=== PATIENT | female | born 1960 | race Caucasian/White ===

== ENCOUNTER 2017-03-30 13:29 | Emergency (ER) | payer OTHER ==
[~2017-03-30] VITALS: Ht 172.7 cm; Wt 77.2 kg
[2017-03-30] MEDS ORDERED: FLUT1LOT EX (13:37)
[2017-03-30] MEDS ORDERED: TIOT18INH INH (13:37)
[2017-03-30] MEDS ORDERED: ALBU17IN2 INH (13:37)
[2017-03-30] MEDS ORDERED: [UNRECOGNIZED DRUG - CODE] PO (13:37)
[2017-03-30] MEDS ORDERED: LIPI10TA PO (13:37)
--- NOTE | 2017-03-30 16:16 | REP ---
Right knee series: Five views: History: Right knee pain. Findings: Five views of the right knee demonstrate normal bones, joints, and soft tissues. No evidence of fracture or subluxation. No joint effusion seen. Impression: Negative right knee radiographs. Signed by Paul Reyes MD 03/30/2017 04:33 P
[2017-03-30] MEDS ORDERED: MORPHINE 4 MG/ML 1ML SYRINGE IM ONE (16:30)
[2017-03-30] MEDS ORDERED: MORPHINE 10 MG/ML 1ML VIAL IM ONE (16:30)
[2017-03-30] MEDS ORDERED: KETOROLAC 60 MG/2 ML VIAL (J1885) IM ONE (16:30)
[2017-03-30] MEDS ORDERED: KETOROLAC 30 MG/ML VIAL (J1885) As Ordered ONE (16:30)
[2017-03-30] MEDS ORDERED: MORPHINE 4 MG/ML 1ML SYRINGE As Ordered ONE (16:30)
[2017-03-30] MEDS ORDERED: IBUP-1022 PO (16:33)
[2017-03-30] MEDS ORDERED: PERC5TAB12 PO (16:33)
[2017-03-30] MEDS ORDERED: MORPHINE 10 MG/ML 1ML VIAL As Ordered ONE (16:34)
[2017-03-30 17:28] VITALS: BP 116/66
== END 2017-03-30 17:28 | disposition home or self-care (01) ==
LOC: M ED 13:29
DX: M25.561 Pain in right knee (principal); J45.909 Unspecified asthma, uncomplicated
CPT/HCPCS: 73564; 96372; 99283; J1885